=== PATIENT | female | born 1980 | race American Indian/Alaskan Native ===

== ENCOUNTER 2016-06-11 20:24 | Emergency (ER) | payer MEDICAID ==
[2016-06-11 20:24] VITALS: BMI 38.0
[2016-06-11 20:45] VITALS: RESP 20
--- NOTE | 2016-06-11 21:54 | C.PDOC ---
History Of Present Illness Patient is a 36 year old female who presents to the ER with a complaint of right sided leg soreness that began 1 week ago. Patient states it began on the right thigh and eventually radiated to the back of the right calf. Denies any trauma, fever, rash, numbness, weakness, and prolong immobilization. Time Seen by Provider: 06/11/16 21:04 Chief Complaint (Nursing): Lower Extremity Problem/Injury History Per: Patient History/Exam Limitations: no limitations Onset/Duration Of Symptoms: Days (7) Current Symptoms Are (Timing): Still Present Pain Scale Rating Of: 5 Past Medical History Reviewed: Historical Data, Nursing Documentation, Vital Signs Vital Signs: Last Vital Signs Temp 97.8 F 06/11/16 23:42 Pulse 85 06/11/16 23:42 Resp 20 06/11/16 23:42 BP 120/91 H 06/11/16 23:42 Pulse Ox 99 06/11/16 23:42 - Medical History PMH: No Chronic Diseases Family History: States: No Known Family Hx - Social History Hx Tobacco Use: No Hx Alcohol Use: Yes Hx Substance Use: No - Immunization History Hx Tetanus Toxoid Vaccination: No Hx Influenza Vaccination: No Hx Pneumococcal Vaccination: No Review Of Systems Except As Marked, All Systems Reviewed And Found Negative. Constitutional: Negative for: Fever Musculoskeletal: Positive for: Leg Pain Skin: Negative for: Rash Neurological: Negative for: Weakness, Numbness Physical Exam - Physical Exam Appears: Well, Non-toxic Skin: Normal Color, Warm, Dry, No Rash Head: Atraumatic, Normacephalic Eye(s): bilateral: Normal Inspection, PERRL, EOMI Oral Mucosa: Moist Neck: Normal ROM, Supple Cardiovascular: Rhythm Regular, No Friction Rub, No Murmur Respiratory: Normal Breath Sounds, No Rales, No Rhonchi, No Wheezing Gastrointestinal/Abdominal: Soft, No Tenderness Extremity: Normal ROM, Calf Tenderness (Right posterior ), Capillary Refill (< 2 sec), No Swelling Extremity: Bilateral: Normal Color And Temperature Pulses: Left Femoral: Normal, Right Femoral: Normal, Left Dorsalis Pedis: Normal , Right Dorsalis Pedis: Normal Neurological/Psych: Oriented x3, Normal Speech, Normal Cognition, Normal Motor, Normal Sensation Gait: Steady ED Course And Treatment O2 Sat by Pulse Oximetry: 97 (on RA) Pulse Ox Interpretation: Normal Medical Decision Making Medical Decision Making: The patient was informed that the D dimer is elevated which means there is possibility of DVT in the leg. The patient was given Lovenox and was instructed to return in the morning for venous doppler of the right leg. Disposition - Disposition Referrals: Cole Barker MD [Medical Doctor] - Disposition: HOME/ ROUTINE Disposition Time: 22:45 Condition: STABLE Additional Instructions: COME TOMORROW MORNING FOR THE DOPPLER ULTRASOUND TO RULE OUT DVT WITHOUT FAIL. Instructions: Leg Edema (ED) - Clinical Impression Clinical Impression: Calf pain - Scribe Statement The provider has reviewed the documentation as recorded by the Scribe Yaw Guerrero All medical record entries made by the Scribe were at my direction and personally dictated by me. I have reviewed the chart and agree that the record accurately reflects my personal performance of the history, physical exam, medical decision making, and the department course for this patient. I have also personally directed, reviewed, and agree with the discharge instructions and disposition.
[2016-06-11] MEDS ORDERED: Enoxaparin 40 mg Syringe SC STA (22:56)
[2016-06-11] MEDS ORDERED: Enoxaparin 80 mg Syringe ONE (23:02)
[2016-06-11 23:43] VITALS: BP 120/91; PULSE 85; TEMP 97.8
[2016-06-13 23:16] VITALS: O2SAT 97
== END 2016-06-11 23:42 | disposition home or self-care (01) ==
LOC: C.ER 20:24
DX: M79.661 Pain in right lower leg (principal)
CPT/HCPCS: 36415; 82550; 85378; 96372; 99284; J1650

== ENCOUNTER 2016-06-12 07:46 | Emergency (ER) | payer MEDICAID ==
[2016-06-12 07:46] VITALS: BMI 38.0
[2016-06-12 07:54] VITALS: O2SAT 98
--- NOTE | 2016-06-12 09:59 | C.PDOC ---
History Of Present Illness 36 year old patient presents to the ED complaining of right leg pain for the past week. The leg feels "tight" and a pulling sensation. Patient denies any trauma, swelling, or redness. Pt was evaluated in [facility] yesterday, treated with Lovenox and instructed to return to doppler. (-) change in sensation (-) change in color Time Seen by Provider: 06/12/16 08:01 Chief Complaint (Nursing): Lower Extremity Problem/Injury History Per: Patient History/Exam Limitations: no limitations Onset/Duration Of Symptoms: Days (1 week) Current Symptoms Are (Timing): Still Present Severity: Mild Pain Scale Rating Of: 3 Recent travel outside of the [place]: No Additional History Per: Prior Records Past Medical History Reviewed: Historical Data, Nursing Documentation, Vital Signs Vital Signs: Last Vital Signs Temp 98.2 F 06/12/16 09:59 Pulse 68 06/12/16 09:59 Resp 17 06/12/16 09:59 BP 119/77 06/12/16 09:59 Pulse Ox 98 06/12/16 13:28 Family History: States: Unknown Family Hx - Social History Hx Tobacco Use: No Hx Alcohol Use: Yes Hx Substance Use: No - Immunization History Hx Tetanus Toxoid Vaccination: No Hx Influenza Vaccination: No Hx Pneumococcal Vaccination: No Review Of Systems Except As Marked, All Systems Reviewed And Found Negative. Musculoskeletal: Positive for: Leg Pain (right). Negative for: Other (trauma, swelling) Skin: Negative for: Rash, Bruising, Other (redness) Physical Exam - Physical Exam Appears: Non-toxic, No Acute Distress Skin: Warm, Dry Head: Atraumatic, Normacephalic Eye(s): bilateral: Normal Inspection, EOMI Oral Mucosa: Moist Neck: Normal ROM, Supple Chest: Symmetrical Cardiovascular: Rhythm Regular Respiratory: Normal Breath Sounds, No Accessory Muscle Use Back: No CVA Tenderness Extremity: Normal ROM, No Pedal Edema, Calf Tenderness (right), Capillary Refill (<2 seconds), No Deformity, No Swelling, Other ((-) pain out of proportion) Extremity: Bilateral: Normal Color And Temperature, Normal ROM Pulses: Left Dorsalis Pedis: Normal, Right Dorsalis Pedis: Normal Neurological/Psych: Oriented x3, Normal Motor, Normal Sensation Gait: Steady ED Course And Treatment O2 Sat by Pulse Oximetry: 98 (RA) Pulse Ox Interpretation: Normal Progress Note: Plan: -Vascular study. --Reassess and disposition. Refused pain medicaiton. Patient is resting comfortably, and is in no acute distress. No signs of infection. Able to ambulate. Patient was instructed to follow up with PMD in 1-2 days for further evaluation. Return to ED if symptoms persist or worsen. Disposition - Disposition Disposition: HOME/ ROUTINE Disposition Time: 09:58 Condition: STABLE Additional Instructions: Follow up with your primary medical doctor or clinic in 2-5 days for further evaluation. Take medications as prescribed. Return to the emergency department at any time if symptoms persist or worsen. 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 - Scribe Statement The provider has reviewed the documentation as recorded by the Scribe Carmen Harris All medical record entries made by the Scribe were at my direction and personally dictated by me. I have reviewed the chart and agree that the record accurately reflects my personal performance of the history, physical exam, medical decision making, and the department course for this patient. I have also personally directed, reviewed, and agree with the discharge instructions and disposition.
[2016-06-12 10:00] VITALS: BP 119/77; PULSE 68; RESP 17; TEMP 98.2
--- NOTE | 2016-06-13 11:43 | VASCLAB ---
PROCEDURE: Right Lower Extremity Venous Duplex Exam. HISTORY: pain PRIORS: None. TECHNIQUE: Right common femoral, femoral, popliteal and posterior tibial, peroneal and great saphenous veins were evaluated. Flow was assessed with color Doppler, compressibility, assessment of phasic flow and augmentation response. Report prepared by ALBERTO Ruiz, RVT FINDINGS: RIGHT: 1. Common Femoral Vein: 1.1. Compressibility - Fully compressible: Thrombus - None: Flow - Phasic: Augmentation -Normal: Reflux - None. 2. Femoral Vein: 2.1. Compressibility - Fully compressible: Thrombus - None: Flow - Phasic: Augmentation -Normal: Reflux - None. 3. Popliteal Vein: 3.1. Compressibility - Fully compressible: Thrombus - None: Flow - Phasic: Augmentation -Normal: Reflux - None. 4. Posterior Tibial Vein: 4.1. Compressibility - Fully compressible: Thrombus - None: Flow - Phasic: Augmentation -Normal: Reflux - None. 5. Peroneal Vein: 5.1. Compressibility - Fully compressible: Thrombus - None: Flow - Phasic: Augmentation -Normal: Reflux - None. 6. Great Saphenous Vein: 6.1. Compressibility - Fully compressible: Thrombus -None: Flow - Phasic: Augmentation - Normal: Reflux - None. OTHER FINDINGS: IMPRESSION: No evidence of deep or superficial vein thrombosis of the right lower extremity with excellent venous flow. Normal valve function noted of the right side. Normal venous flow noted in the left common femoral vein.
== END 2016-06-12 10:27 | disposition home or self-care (01) ==
LOC: C.ER 07:46
DX: M79.661 Pain in right lower leg (principal)

== ENCOUNTER 2016-07-16 19:13 | Emergency (ER) | payer MEDICAID ==
[2016-07-16 19:13] VITALS: BMI 38.0
[2016-07-16 19:25] VITALS: BP 117/79; PULSE 81; RESP 18; TEMP 98.1; O2SAT 96
[2016-07-16] MEDS ORDERED: Albuterol-Ipratrop 3 mg / 0.5 (3 ml) UD ONE (19:42)
[2016-07-16] MEDS ORDERED: Albuterol-Ipratrop 3 mg / 0.5 (3 ml) UD IH SCH (19:45)
--- NOTE | 2016-07-16 20:27 | C.PDOC ---
History Of Present Illness Patient is a 36 y/o female that presents to the ED for evaluation of cough associated with congestion for the past 2-3 days. Patient also reports post tussive emesis for the past 2 days. Pt notes using OTC medications without any relief. Otherwise, denies any recent travel, fever, chills, diarrhea, abdominal pain, chest pain, shortness of breath, or any other associated symptoms at this time. Time Seen by Provider: 07/16/16 19:31 Chief Complaint (Nursing): Cough, Cold, Congestion History Per: Patient History/Exam Limitations: no limitations Onset/Duration Of Symptoms: Days (3) Current Symptoms Are (Timing): Still Present Associated Symptoms: Cough. denies: Dyspnea, Sputum Production, Hemoptysis, Fever, Chest Pain Severity: None Pain Scale Rating Of: 0 Recent travel outside of the [place]: No Additional History Per: Patient Past Medical History Reviewed: Historical Data, Nursing Documentation, Vital Signs Vital Signs: Last Vital Signs Temp 98.1 F 07/16/16 19:22 Pulse 81 07/16/16 19:22 Resp 18 07/16/16 19:22 BP 117/79 07/16/16 19:22 Pulse Ox 96 07/16/16 21:05 Family History: States: Unknown Family Hx - Social History Hx Tobacco Use: No Hx Alcohol Use: Yes Hx Substance Use: No - Immunization History Hx Tetanus Toxoid Vaccination: No Hx Influenza Vaccination: No Hx Pneumococcal Vaccination: No Review Of Systems Except As Marked, All Systems Reviewed And Found Negative. Constitutional: Negative for: Fever, Chills ENT: Positive for: Nose Congestion Cardiovascular: Negative for: Chest Pain Respiratory: Positive for: Cough. Negative for: Shortness of Breath, Sputum Gastrointestinal: Positive for: Vomiting. Negative for: Abdominal Pain, Diarrhea Physical Exam - Physical Exam Appears: Non-toxic, No Acute Distress Skin: Normal Color, Warm, Dry Head: Atraumatic, Normacephalic Eye(s): bilateral: Normal Inspection, EOMI Ear(s): Bilateral: Normal Throat: Normal, No Erythema, No Exudate, No Drooling Neck: Normal ROM, Supple Chest: Symmetrical, No Tenderness Cardiovascular: Rhythm Regular, No Murmur Respiratory: No Accessory Muscle Use, No Rales, No Rhonchi, No Stridor, Wheezing (scattered expiratory wheezing throughout) Gastrointestinal/Abdominal: Soft, No Tenderness Neurological/Psych: Oriented x3, Normal Speech, Normal Cognition ED Course And Treatment O2 Sat by Pulse Oximetry: 96 (on RA) Pulse Ox Interpretation: Normal - Radiology CXR: Interpreted by Me CXR Interpretation: Yes: Infiltrates (patchy interstitial infiltrate). No: Cardiomegaly, Pnemothorax Progress Note: CXR ordered and reviewed. Patient was treated with Albuterol, Azithromycin, and Prednisone in the ER. On reassessment, patient is resting comfortably, with no acute distress. Lungs are CTA, pulse ox is 98% on RA. Patient notes improvement of symptoms. Patient is being discharged home with instructions to follow up with PMD in 1-2 days. Disposition - Disposition Referrals: Cole Barker MD [Medical Doctor] - Disposition: HOME/ ROUTINE Disposition Time: 20:26 Condition: GOOD Additional Instructions: Follow up with the medical doctor within 1-2 days. Return if worsened. 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 - Scribe Statement The provider has reviewed the documentation as recorded by the Elyseibramona Harris All medical record entries made by the Elyseibramona were at my direction and personally dictated by me. I have reviewed the chart and agree that the record accurately reflects my personal performance of the history, physical exam, medical decision making, and the department course for this patient. I have also personally directed, reviewed, and agree with the discharge instructions and disposition.
--- NOTE | 2016-07-17 08:15 | RAD ---
HISTORY: cough, wheezing COMPARISON: No prior. TECHNIQUE: Chest PA and lateral FINDINGS: LUNGS: Prominent lung markings. No evidence of focal consolidation P PLEURA: No significant pleural effusion identified. No pneumothorax apparent. CARDIOVASCULAR: Normal. OSSEOUS STRUCTURES: No significant abnormalities. VISUALIZED UPPER ABDOMEN: Normal. OTHER FINDINGS: None. IMPRESSION: Prominent lung markings. No radiographic evidence of pneumonia.
== END 2016-07-16 20:39 | disposition home or self-care (01) ==
LOC: C.ER 19:13
DX: J40 Bronchitis, not specified as acute or chronic (principal)

== ENCOUNTER 2016-09-16 00:46 | Emergency (ER) | payer MEDICAID, OTHER ==
[2016-09-16 00:47] VITALS: BMI 38.0
[2016-09-16 01:09] VITALS: BP 111/75; PULSE 64; RESP 18; TEMP 97.6; O2SAT 99
[2016-09-16] MEDS ORDERED: Bacitracin 500 Units/gm Oint Foilpak UD TOP ONE (01:24)
--- NOTE | 2016-09-16 01:26 | C.PDOC ---
History Of Present Illness 36 y/o female presents to the ED for evaluation of right foot wound s/p stepping on a nail with shoes on just prior to arrival. Otherwise, denies any active bleeding, weakness, change in sensation, fever, or any other associated symptoms at this time. Time Seen by Provider: 09/16/16 01:23 Chief Complaint (Nursing): Abnormal Skin Integrity History Per: Patient History/Exam Limitations: no limitations Onset/Duration Of Symptoms: Hrs Current Symptoms Are (Timing): Still Present Location Of Injury: Right: Foot Quality Of Symptoms: denies: Itching, Swollen, Draining Recent travel outside of the [place]: No Additional History Per: Patient Past Medical History Reviewed: Historical Data, Nursing Documentation, Vital Signs Vital Signs: Last Vital Signs Temp 97.6 F 09/16/16 01:06 Pulse 64 09/16/16 01:06 Resp 18 09/16/16 01:06 BP 111/75 09/16/16 01:06 Pulse Ox 99 09/16/16 02:36 Family History: States: Unknown Family Hx - Social History Hx Tobacco Use: No Hx Alcohol Use: Yes Hx Substance Use: No - Immunization History Hx Tetanus Toxoid Vaccination: No Hx Influenza Vaccination: No Hx Pneumococcal Vaccination: No Review Of Systems Except As Marked, All Systems Reviewed And Found Negative. Constitutional: Negative for: Fever, Chills Musculoskeletal: Positive for: Foot Pain (right) Neurological: Negative for: Weakness, Numbness Physical Exam - Physical Exam Appears: Non-toxic, No Acute Distress Skin: Warm, Dry, Other (puncture wound to plantar aspect of right foot) Head: Atraumatic, Normacephalic Eye(s): bilateral: Normal Inspection, EOMI Nose: Normal Oral Mucosa: Moist Chest: Symmetrical Respiratory: No Accessory Muscle Use Extremity: Normal ROM, No Tenderness, Capillary Refill (< 2 sec.), No Deformity , No Swelling Pulses: Left Dorsalis Pedis: Normal, Right Dorsalis Pedis: Normal Neurological/Psych: Oriented x3, Normal Speech, Normal Motor, Normal Sensation ED Course And Treatment O2 Sat by Pulse Oximetry: 99 Pulse Ox Interpretation: Normal Progress Note: Wound was irrigated, and cleansed. Patient is being discharged home with wound instructions, and is instructed to follow up with PMD in 1-2 days. Disposition - Disposition Referrals: Non [facility] Provider, [Primary Care Provider] - Disposition: HOME/ ROUTINE Disposition Time: 01:24 Condition: STABLE Additional Instructions: Watch for signs of infection including redness, swelling or discharge. Follow up with PMD in 1-2 days for re-evaluation. Return to ER if symptoms persist or worsen. 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 - Scribe Statement The provider has reviewed the documentation as recorded by the Scribe Alejandra Harris All medical record entries made by the Elyseibramona were at my direction and personally dictated by me. I have reviewed the chart and agree that the record accurately reflects my personal performance of the history, physical exam, medical decision making, and the department course for this patient. I have also personally directed, reviewed, and agree with the discharge instructions and disposition.
[2016-09-16] MEDS ORDERED: Bacitracin 500 Units/gm Oint Foilpak UD ONE (01:33)
== END 2016-09-16 01:46 | disposition home or self-care (01) ==
LOC: C.ER 00:46 → SUPCPDRO 00:46 → C.ER 01:46
DX: S91.331A Puncture wound without foreign body, right foot, initial encounter (principal); W45.0XXA Nail entering through skin, initial encounter

== ENCOUNTER 2016-11-29 23:29 | Emergency (ER) | payer MEDICAID, OTHER ==
[2016-11-29 23:29] VITALS: BMI 38.0
[2016-11-29 23:37] VITALS: BP 118/81; TEMP 98.4
[2016-11-30] MEDS ORDERED: Albuterol 0.083% Inhal Sol (2.5 mg/3 mL) UD ONE (00:18)
--- NOTE | 2016-11-30 01:41 | C.PDOC ---
History Of Present Illness 36 year old female presents to the ED with complaints of cough, chest congestion , and minimal chest tightness for one week. Patient states she was treated a few months prior for bronchitis and finished her medications. She uses an albuterol inhaler at home with no relief and has run out of her nebulizer treatment. Patient denies recent travel, sick contacts, nausea, or vomiting. Time Seen by Provider: 11/29/16 23:52 Chief Complaint (Nursing): Shortness Of Breath History Per: Patient History/Exam Limitations: no limitations Onset/Duration Of Symptoms: Days (1 week ) Current Symptoms Are (Timing): Still Present Current Respiratory Medications: Albuterol Associated Symptoms: denies: Fever, Chills Recent travel outside of the [place]: No Additional History Per: Prior Records Past Medical History Reviewed: Historical Data, Nursing Documentation, Vital Signs Vital Signs: Last Vital Signs Temp 98.4 F 11/29/16 23:34 Pulse 72 11/30/16 02:10 Resp 18 11/30/16 02:10 BP 118/81 11/29/16 23:34 Pulse Ox 99 11/30/16 02:10 - Medical History PMH: Bronchitis Family History: States: Unknown Family Hx - Social History Hx Tobacco Use: No Hx Alcohol Use: Yes Hx Substance Use: No - Immunization History Hx Tetanus Toxoid Vaccination: No Hx Influenza Vaccination: No Hx Pneumococcal Vaccination: No Review Of Systems Constitutional: Negative for: Fever, Chills Cardiovascular: Positive for: Other (chest congestion and tightness ). Negative for: Chest Pain, Palpitations Respiratory: Positive for: Cough. Negative for: Shortness of Breath Gastrointestinal: Negative for: Nausea, Vomiting, Abdominal Pain, Diarrhea Skin: Negative for: Rash Physical Exam - Physical Exam Appears: Non-toxic, No Acute Distress Skin: Warm, Dry Head: Atraumatic, Normacephalic Eye(s): bilateral: Normal Inspection, PERRL, EOMI Ear(s): Bilateral: Normal Nose: Normal, No Discharge Oral Mucosa: Moist Throat: Normal, No Erythema, No Exudate Neck: Normal ROM, Supple Chest: Symmetrical, No Deformity Cardiovascular: Rhythm Regular, No Murmur Respiratory: Normal Breath Sounds, No Rales, No Rhonchi, No Wheezing Gastrointestinal/Abdominal: Soft, No Tenderness, No Distention, No Guarding, No Rebound Neurological/Psych: Oriented x3 ED Course And Treatment O2 Sat by Pulse Oximetry: 98 (room air ) - Radiology CXR: Interpreted by Me, Viewed By Me CXR Interpretation: Yes: Other (No acute changes from prior CXR ) Progress Note: Labs and CXR were ordered. Patient was given prednisone and phenergan/codeine oral syrup. Patient was instructed to follow up with PMD. Disposition Counseled Patient/Family Regarding: Diagnosis, Need For Followup, Rx Given - Disposition Disposition: HOME/ ROUTINE Disposition Time: 01:38 Condition: STABLE Additional Instructions: Please increase PO fluids Take meds as directed Return to ER if worse Prescriptions: Albuterol HFA [Ventolin HFA 90 mcg/actuation (8 g)] 2 puff IH L4ADEIE #1 inhaler Albuterol 0.083% [Albuterol 0.083% Inhal Vashti (2.5 mg/3 ml) UD] 2.5 mg IH TID # 100 neb Benzonatate [Tessalon Perles] 100 mg PO TID #20 sgl Cetirizine HCl [Zyrtec] 10 mg PO DAILY #20 capsule predniSONE [Prednisone] 40 mg PO DAILY #8 tab Instructions: Acute Bronchitis (ED) Forms: [employer] (Tai[place]ese), Work Excuse - Clinical Impression Clinical Impression: Respiratory tract infection - 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 - Scribe Statement The provider has reviewed the documentation as recorded by the Scribe Denisse Mata All medical record entries made by the Scribe were at my direction and personally dictated by me. I have reviewed the chart and agree that the record accurately reflects my personal performance of the history, physical exam, medical decision making, and the department course for this patient. I have also personally directed, reviewed, and agree with the discharge instructions and disposition.
[2016-11-30] MEDS ORDERED: Promethazine/Cod 6.25mg-10mg/5ml Syr UD PO STA (01:45)
[2016-11-30] MEDS ORDERED: Promethazine/Cod 6.25mg-10mg/5ml Syr UD ONE (01:51)
[2016-11-30 02:10] VITALS: PULSE 72; RESP 18
[2016-11-30 05:53] VITALS: O2SAT 98
--- NOTE | 2016-11-30 08:57 | RAD ---
HISTORY: Cough and shortness of breath COMPARISON: 07/16/2016. TECHNIQUE: Chest PA and lateral FINDINGS: LUNGS: The lungs are well inflated and clear. PLEURA: No significant pleural effusion identified. No pneumothorax apparent. CARDIOVASCULAR: Normal. OSSEOUS STRUCTURES: No significant abnormalities. VISUALIZED UPPER ABDOMEN: Normal. OTHER FINDINGS: None. IMPRESSION: No active pulmonary disease.
== END 2016-11-30 02:10 | disposition home or self-care (01) ==
LOC: C.ER 23:29
DX: J98.8 Other specified respiratory disorders (principal)

== ENCOUNTER 2017-02-19 22:23 | Emergency (ER) | payer MEDICAID ==
[2017-02-19 22:23] VITALS: BMI 38.0
--- NOTE | 2017-02-19 23:43 | C.PDOC ---
History Of Present Illness 36 yo female w/o significant PMHx come in for evaluation of left knee pain gradually developed for past week. Pt reports, pain is localized over left knee , non-radiating and worse with weight bearing and knee bending. Otherwise, pt denies known trauma or injury, fever, chills, denies obvious deformity, skin changes, warmth to Left knee, denies weakness, sensory or vascular deficits to Right leg, denies left calf pain. Ambulate to Ed for evaluation, not in any apparent distress. Time Seen by Provider: 02/19/17 23:11 Chief Complaint (Nursing): Lower Extremity Problem/Injury History Per: Patient Onset/Duration Of Symptoms: Gradual Past Medical History Reviewed: Historical Data, Nursing Documentation, Vital Signs Vital Signs: Last Vital Signs Temp 97.7 F 02/19/17 22:43 Pulse 97 H 02/19/17 22:43 Resp 20 02/19/17 22:43 BP 126/79 02/19/17 22:43 Pulse Ox 99 02/19/17 23:46 - Medical History PMH: Bronchitis Denies: Diabetes, Hepatitis, HIV, HTN, Seizures, Sexually Transmitted Disease Surgical History: No Surg Hx Family History: States: No Known Family Hx - Social History Hx Tobacco Use: No Hx Alcohol Use: No Hx Substance Use: No - Immunization History Hx Tetanus Toxoid Vaccination: No Hx Influenza Vaccination: No Hx Pneumococcal Vaccination: No Review Of Systems Except As Marked, All Systems Reviewed And Found Negative. Constitutional: Negative for: Fever, Chills ENT: Negative for: Throat Pain Musculoskeletal: Positive for: Other (Left knee pain) Skin: Negative for: Rash, Bruising Neurological: Negative for: Weakness, Numbness Physical Exam - Physical Exam Appears: Well, Non-toxic, No Acute Distress Skin: Normal Color, Warm, No Rash, No Ecchymosis Extremity: Normal ROM (left knee, no neurovascular deficist distally.), Tenderness (mild tenderness over ant/post aspect left knee. No edema, no skin changes, no erythema.), No Calf Tenderness (left), Capillary Refill (left foot) , No Deformity, No Swelling Neurological/Psych: Oriented x3, Normal Speech, Normal Motor, Normal Sensation, Normal Reflexes ED Course And Treatment O2 Sat by Pulse Oximetry: 99 Pulse Ox Interpretation: Normal - Other Rad Left knee X-Ray: Interpreted by Me, Viewed By Me Interpretation: (+) mild DJD, no acute fx or dislocation Progress Note: On re-eval, pt is afebrile, hemodynamicalys table. non-toxic. Ambulatory in ED with stable gait. Left knee: exam c/w mild arthralgia, No defomrity, no skin changes, no clelulitis. FAROM, no neurovascular deficits, no calf tenderness. Imaging review and appears normal. Pt has clinical findings c /w left knee arthralgia. Pt advised and ref. to f/[facility] in 2-3 days for re-eavl and further tx as need. return if any new changes. Disposition Counseled Patient/Family Regarding: Studies Performed, Diagnosis, Need For Followup - Disposition Referrals: [facility] [Outside] Rojelio Davidson MD [Staff Provider] - Disposition: HOME/ ROUTINE Disposition Time: 23:20 Condition: STABLE Additional Instructions: YOLANDA WRAP TO KNEE LIGHT DUTY TO LEFT KNEE TAKE MEDICATION PRESCRIBED FOLLOW UP WITH ORTHOPEDIST IN 1-2 DAYS FOR RE-EVALUATION RETURN TO ED IF ANY WORSENING OR NEW CHANGES. Prescriptions: Ibuprofen [Motrin Tab] 600 mg PO Q6 #14 tab Instructions: Knee Pain (ED), Arthralgia (ED) Forms: v2 Ratings (Algerian) - Clinical Impression Clinical Impression: Arthralgia of knee
[2017-02-19 23:55] VITALS: BP 126/79; PULSE 97; RESP 20; TEMP 97.7; O2SAT 99
--- NOTE | 2017-02-20 09:14 | RAD ---
PROCEDURE: Left Knee Radiographs. HISTORY: Pain. COMPARISON: None. FINDINGS: BONES: Bone alignment and mineralization are normal. There is no acute displaced fracture or bone destruction. JOINTS: There is mild degenerative osteoarthrosis in the medial compartment with mild reduced joint space and tibial spiking. JOINT EFFUSION: There is a small suprapatellar joint effusion. OTHER FINDINGS: None. IMPRESSION: Mild degenerative osteoarthrosis in the medial compartment and small suprapatellar joint effusion.
== END 2017-02-20 00:06 | disposition home or self-care (01) ==
LOC: C.ER 22:23
DX: M25.562 Pain in left knee (principal)